=== PATIENT | male | born 1995 | race Caucasian/White ===

== ENCOUNTER 2023-01-01 09:05 | Observation (INO) | payer OTHER ==
[~2023-01-01] VITALS: Ht 193 cm; Wt 82.5 kg
[~2023-01-01 09:05] MED LIST: AMOCLA875 PO; DEXT15ER; LEVFLO500; SERT25
[2023-01-01 10:31] LABS: BASOPHILS ABSOLUTE AUTO 0.06 K/mm3 (0.00-0.23); BASOPHILS PERCENT AUTO 1 % (0-2); EOSINOPHILS PERCENT AUTO 0 % (0-6); Hematocrit 47.1 % (37.0-53.0); Hemoglobin 15.9 g/dL (13.5-17.5); IMMATURE GRAN ABSOLUTE AUTO 0.04 K/mm3 (0.00-0.10); IMMATURE GRAN PERCENT AUTO 1 % (0-1); LYMPHOCYTES ABSOLUTE AUTO 0.83 K/mm3 (0.84-5.20); LYMPHOCYTES PERCENT AUTO 10 % (21-46); MONOCYTES ABSOLUTE AUTO 0.42 K/mm3 (0.16-1.47); MONOCYTES PERCENT AUTO 5 % (4-13); Mean Corpuscular HGB 35.7 pg (26.0-34.0); Mean Corpuscular HGB Conc 33.8 g/dL (31.5-36.5); Mean Corpuscular Volume 106 fL (80-100); Mean Platelet Volume 12.1 fL (9.1-12.4); NEUTROPHILS ABSOLUTE AUTO 6.82 K/mm3 (1.96-9.15); NEUTROPHILS PERCENT AUTO 84 % (41-73); Platelet Count 148 K/mm3 (150-400); RDW Coefficient Variation 13.2 % (11.7-14.2); RDW Standard Deviation 52.3 fL (35.1-46.3); Red Blood Cell Count 4.46 M/mm3 (4.30-5.90); White Blood Cell Count 8.17 K/mm3 (4.00-11.30)
[2023-01-01 10:52] LABS: Albumin, Blood 4.4 g/dL (3.4-5.0); Albumin/Globulin Ratio 1.3 (0.8-1.8); Bilirubin, Direct 0.5 mg/dL (0.0-0.3); Bilirubin, Total 1.5 mg/dL (0.1-1.0); Bun/Creatinine Ratio 13.6 (12.0-20.0); Calcium, Blood 9.7 mg/dL (8.5-10.1); Creatinine, Blood 0.66 mg/dL (0.60-1.20); Globulin, Blood 3.4 g/dL (2.2-4.0); Potassium, Blood 3.9 mmol/L (3.5-5.5); Total Protein, Blood 7.8 g/dL (6.4-8.2)
[2023-01-01 12:00] LABS: Base Excess Venous -7.9 mmol/L; Bicarbonate Venous 18.7 mmol/L (24.0-30.0); PCO2 Venous 36.6 mmHg (38-42); pH Blood Venous 7.31 (7.34-7.37)
[2023-01-01 14:25] LABS: Calcium, Ionized (POC) 1.08 mmol/L (1.10-1.46); Chloride (POC) 96 mmol/L (98-108); Creatinine (POC) 0.5 mg/dL (0.8-1.3); Glucose (ISTAT POC) 231 mg/dL (70-99); Hemoglobin (POC) 13.9 g/dL (13.5-17.5); Sodium (POC) 133 mmol/L (135-148); Total CO2 (POC) 25 mmol/L (21-32)
[2023-01-01 14:51] VITALS: BP 139/91
--- NOTE | 2023-01-01 18:28 | NUR ---
LATE ENTRY PT ADMIT FROM ED. TREMORS ALERT AND ORIENTED X4. INDEPENDENT IN ROOM. FAMILY IS AT BEDSIDE. R/A
--- NOTE | 2023-01-01 18:53 | NUR ---
PT IS A CURRENT SMOKER. 1 PACK DAY FOR 10 YEARS[address] PATCH[address]. [place] CONSULTED. PLEASE SEE EMAR
[2023-01-01 20:28] VITALS: BP 125/75
[2023-01-02 03:47] VITALS: BP 124/89
[2023-01-02 05:24] LABS: BASOPHILS ABSOLUTE AUTO 0.02 K/mm3 (0.00-0.23); BASOPHILS PERCENT AUTO 1 % (0-2); EOSINOPHILS ABSOLUTE AUTO 0.05 K/mm3 (0.00-0.68); EOSINOPHILS PERCENT AUTO 1 % (0-6); Hematocrit 40.9 % (37.0-53.0); Hemoglobin 14.3 g/dL (13.5-17.5); IMMATURE GRAN ABSOLUTE AUTO 0.01 K/mm3 (0.00-0.10); IMMATURE GRAN PERCENT AUTO 0 % (0-1); LYMPHOCYTES ABSOLUTE AUTO 1.83 K/mm3 (0.84-5.20); LYMPHOCYTES PERCENT AUTO 43 % (21-46); MONOCYTES ABSOLUTE AUTO 0.36 K/mm3 (0.16-1.47); MONOCYTES PERCENT AUTO 9 % (4-13); Mean Corpuscular Volume 103 fL (80-100); Mean Platelet Volume 12.6 fL (9.1-12.4); NEUTROPHILS ABSOLUTE AUTO 1.97 K/mm3 (1.96-9.15); NEUTROPHILS PERCENT AUTO 46 % (41-73); Platelet Count 104 K/mm3 (150-400); RDW Coefficient Variation 12.6 % (11.7-14.2); RDW Standard Deviation 47.8 fL (35.1-46.3); Red Blood Cell Count 3.97 M/mm3 (4.30-5.90); White Blood Cell Count 4.24 K/mm3 (4.00-11.30)
[2023-01-02 05:49] LABS: Albumin, Blood 3.3 g/dL (3.4-5.0); Albumin/Globulin Ratio 1.2 (0.8-1.8); Bilirubin, Total 1.7 mg/dL (0.1-1.0); Bun/Creatinine Ratio 12.9 (12.0-20.0); Creatinine, Blood 0.7 mg/dL (0.60-1.20); Globulin, Blood 2.8 g/dL (2.2-4.0); Magnesium, Blood 2.1 mg/dL (1.6-2.4); Potassium, Blood 4.5 mmol/L (3.5-5.5); Total Protein, Blood 6.1 g/dL (6.4-8.2)
[2023-01-02 07:24] VITALS: BP 133/94
--- NOTE | 2023-01-02 07:46 | NUR ---
NO CHANGES IN [place] OVERNIGHT. 0400 CIWA WAS 4. JUST A SLIGHT TREMBLE AND PERSPIRATION. NO COMPLAINTS OF PAIN OR DISCOMFORT. UP IN HALLS THIS MORNING. VERY LOW LEVEL OF ANXIETY
[2023-01-02 15:10] VITALS: BP 133/82
--- NOTE | 2023-01-02 16:28 | NUR ---
SHIFT SUMMARY NO ACUTE CHANGES NOTED DURING SHIFT. PT ALERT AND ORIENTED, CALLS APPROPRIATELY. PT REMAINS ON RA, INDEPENDENT IN ROOM/BALES. PT PENDING PLACEMENT AT [facility]. CIWA REMAINS LOW, NO NOTICEABLE SIGNS OF WITHDRAW. WILL CONTINUE TO MONITOR. CALL LIGHT WITHIN REACH.
[2023-01-02] MEDS ORDERED: B-1100 M1 PO (17:09)
[2023-01-02] MEDS ORDERED: FOLI1 PO (17:09)
[2023-01-02] MEDS ORDERED: NICO21TP TOP (17:10)
--- NOTE | 2023-01-02 17:16 | NUR ---
DISCHARGE SUMMARY DISCHARGE, FOLLOWUP, AND MEDICATION INSTRUCTIONS GIVEN TO PT. PT VOICED COMPLETE UNDERSTANDING AND HAS NO QUESTIONS AT THIS TIME. IV REMOVED WITH CATHETER TIP INTACT. PT LEFT UNIT WITH MOTHER.
== END 2023-01-02 17:51 | disposition home or self-care (01) ==
LOC: ER 09:05 → MEDS 09:06 → ENPENDDIS 01-02 16:43 → MEDS 01-02 17:51
PROVIDERS: Student in an Organized Health Care Education/Training Program; ADMIT Internal Medicine
DX: F10.239 Alcohol dependence with withdrawal, unspecified (principal); R74.01 Elevation of levels of liver transaminase levels; E87.20 Acidosis, unspecified; E87.29 Other acidosis; E16.2 Hypoglycemia, unspecified; E80.6 Other disorders of bilirubin metabolism; F32.9 Major depressive disorder, single episode, unspecified; Z88.8 Allergy status to other drugs, medicaments and biological substances; Z72.0 Tobacco use
CPT/HCPCS: 36415; 76700; 80047; 80048; 80053; 80076; 82010; 82803; 83605; 83735; 85014; 85025; 93005; 93010; A9270; G0480; J2060; J2405; J7030; J7042

== ENCOUNTER 2023-08-21 15:20 | Emergency (ER) | payer OTHER ==
[~2023-08-21] VITALS: Ht 193 cm; Wt 72.6 kg
[~2023-08-21 15:20] MED LIST changes: +B-1100 M1 PO; +FOLI1 PO; +NICO21TP TOP
[2023-08-21 16:34] LABS: BASOPHILS ABSOLUTE AUTO 0.07 K/mm3 (0.00-0.23); BASOPHILS PERCENT AUTO 1 % (0-2); EOSINOPHILS PERCENT AUTO 0 % (0-6); Hemoglobin 22.2 g/dL (13.5-17.5); IMMATURE GRAN ABSOLUTE AUTO 0.04 K/mm3 (0.00-0.10); IMMATURE GRAN PERCENT AUTO 0 % (0-1); LYMPHOCYTES ABSOLUTE AUTO 1.15 K/mm3 (0.84-5.20); LYMPHOCYTES PERCENT AUTO 8 % (21-46); MONOCYTES ABSOLUTE AUTO 0.89 K/mm3 (0.16-1.47); MONOCYTES PERCENT AUTO 6 % (4-13); Mean Corpuscular HGB 34.7 pg (26.0-34.0); Mean Corpuscular HGB Conc 35.5 g/dL (31.5-36.5); Mean Corpuscular Volume 98 fL (80-100); Mean Platelet Volume 12.7 fL (9.1-12.4); NEUTROPHILS PERCENT AUTO 85 % (41-73); NRBC ABSOLUTE 0.03 K/mm3 (0.00-0.02); NRBC Auto 0.2 /100 WBC (0.0-0.2); Platelet Count 171 K/mm3 (150-400); RDW Coefficient Variation 15.5 % (11.7-14.2); RDW Standard Deviation 53.6 fL (35.1-46.3); Red Blood Cell Count 6.39 M/mm3 (4.30-5.90); White Blood Cell Count 14.25 K/mm3 (4.00-11.30)
[2023-08-21 16:46] LABS: Hematocrit 62.6 % (37.0-53.0)
[2023-08-21 16:53] LABS: Albumin, Blood 4.2 g/dL (3.4-5.0); Bilirubin, Total 1.9 mg/dL (0.1-1.0); Bun/Creatinine Ratio 8.6 (12.0-20.0); Creatinine, Blood 0.81 mg/dL (0.60-1.20); Potassium, Blood 3.6 mmol/L (3.5-5.5); Total Protein, Blood 8.2 g/dL (6.4-8.2)
[2023-08-21 18:27] LABS: Magnesium, Blood 1.7 mg/dL (1.6-2.4)
[2023-08-21 20:30] VITALS: BP 131/74
[2023-08-21 20:36] LABS: Source, Urine Clean Catch
[2023-08-21 20:42] LABS: Appearance, Urine Clear (Clear); Blood, Urine Neg (Neg); Color, Urine Amber (P-Yellow); Glucose Qualitative, Urine 2+ (Neg); Ketones, Urine 4+ (Neg); Leukocyte Esterase, Urine 1+ (Neg); Nitrite, Urine Neg (Neg); Protein, Urine 2+ (Neg); Specific Gravity, Urine 1.025 (1.003-1.022); Urobilinogen, Urine 2+ (Normal)
[2023-08-21] MEDS ORDERED: CHLO25 PO (20:44)
[2023-08-21 20:47] LABS: Bilirubin, Urine 1+ (Neg)
[2023-08-21 20:49] LABS: Bacteria Many /hpf; Squamous Epithelial Cells Rare /hpf (Few)
[2023-08-21 20:50] LABS: Mucus Light (0-Heavy)
[2023-08-21 20:53] LABS: U Amphetamine Screen Not Detected; U Barbituate Screen Not Detected; U Benzodiazapine Screen Not Detected; U Buprenorphine Screen Not Detected; U Cannabinoids Screen DETECTED; U Cocaine Screen Not Detected; U Methadone Screen Not Detected; U Methamphetamine Screen Not Detected; U Opiates Screen Not Detected; U Oxycodone Screen Not Detected; U Phencyclidine Screen Not Detected
== END 2023-08-21 20:57 | disposition home or self-care (01) ==
LOC: ER 15:20
PROVIDERS: Emergency Medicine; Physician Assistant
DX: F10.230 Alcohol dependence with withdrawal, uncomplicated (principal); Y90.0 Blood alcohol level of less than 20 mg/100 ml; E86.0 Dehydration; E16.2 Hypoglycemia, unspecified; F17.200 Nicotine dependence, unspecified, uncomplicated; F50.2 Bulimia nervosa; Z79.899 Other long term (current) drug therapy; Z88.8 Allergy status to other drugs, medicaments and biological substances
CPT/HCPCS: 80053; 81001; 83605; 83690; 83735; 84145; 85025; 87086; 93005; 93010; 96361; 96374; 96375; 99284-25; J1885; J2405; J3360; J7030

== ENCOUNTER 2024-11-26 09:08 | Observation (INO) | payer OTHER ==
[~2024-11-26] VITALS: Ht 193 cm; Wt 108.0 kg
[~2024-11-26 09:08] MED LIST changes: +CHLO25 PO
[2024-11-26 10:10] LABS: BASOPHILS ABSOLUTE AUTO 0.02 K/mm3 (0.00-0.23); BASOPHILS PERCENT AUTO 0 % (0-2); EOSINOPHILS ABSOLUTE AUTO 0.04 K/mm3 (0.00-0.68); EOSINOPHILS PERCENT AUTO 0 % (0-6); Hematocrit 52.1 % (37.0-53.0); Hemoglobin 18.5 g/dL (13.5-17.5); IMMATURE GRAN ABSOLUTE AUTO 0.04 K/mm3 (0.00-0.10); IMMATURE GRAN PERCENT AUTO 0 % (0-1); LYMPHOCYTES ABSOLUTE AUTO 1.45 K/mm3 (0.84-5.20); LYMPHOCYTES PERCENT AUTO 13 % (21-46); MONOCYTES ABSOLUTE AUTO 0.96 K/mm3 (0.16-1.47); MONOCYTES PERCENT AUTO 9 % (4-13); Mean Corpuscular HGB 35.4 pg (26.0-34.0); Mean Corpuscular HGB Conc 35.5 g/dL (31.5-36.5); Mean Corpuscular Volume 100 fL (80-100); Mean Platelet Volume 12.1 fL (9.1-12.4); NEUTROPHILS ABSOLUTE AUTO 8.83 K/mm3 (1.96-9.15); NEUTROPHILS PERCENT AUTO 78 % (41-73); Platelet Count 208 K/mm3 (150-400); RDW Coefficient Variation 12.8 % (11.7-14.2); RDW Standard Deviation 47.1 fL (35.1-46.3); Red Blood Cell Count 5.23 M/mm3 (4.30-5.90); White Blood Cell Count 11.34 K/mm3 (4.00-11.30)
[2024-11-26 10:40] LABS: Albumin, Blood 4.1 g/dL (3.4-5.0); Bilirubin, Total 0.9 mg/dL (0.1-1.0); Bun/Creatinine Ratio 7.2 (12.0-20.0); Calcium, Blood 9.3 mg/dL (8.5-10.1); Creatinine, Blood 0.7 mg/dL (0.60-1.20); Globulin, Blood 4.3 g/dL (2.2-4.0); Total Protein, Blood 8.4 g/dL (6.4-8.2)
[2024-11-26] MEDS ORDERED: Ketorolac Tromethamine 15mg Vial IV ONE (12:05)
[2024-11-26] MEDS ORDERED: NS 1,000 ML IV SCH (12:20)
[2024-11-26] MEDS ORDERED: CLIN150 PO (12:23)
[2024-11-26] MEDS ORDERED: Clindamycin 900mg in D5W 50ML 50 ML IV ONE (12:35)
[2024-11-26] MEDS ORDERED: GABA300 PO (12:47)
[2024-11-26] MEDS ORDERED: Ondansetron HCl 2 MG / ML 2ML Vial IV PRN (13:50)
[2024-11-26] MEDS ORDERED: Ketorolac Tromethamine 15mg Vial IV PRN (13:55)
[2024-11-26] MEDS ORDERED: Piperacillin/Tazobactam Sod 4.5 GM in NS 100 ML IV SCH (14:00)
[2024-11-26 14:10] VITALS: BP 133/77
[2024-11-26] MEDS ORDERED: Lactobacil 2-S.Thermo-Bifido 1 1 Cap PO SCH (21:00)
== END 2024-11-26 23:00 | disposition home or self-care (01) ==
LOC: ER 09:08 → ERHOLD 09:09
PROVIDERS: Physician Assistant; ADMIT Family Medicine
DX: K04.7 Periapical abscess without sinus (principal); F17.200 Nicotine dependence, unspecified, uncomplicated; Z53.29 Procedure and treatment not carried out because of patient's decision for other reasons; Z88.8 Allergy status to other drugs, medicaments and biological substances; Z79.899 Other long term (current) drug therapy
CPT/HCPCS: 70487; 80053; 85025; 96365-59; 96375; 99284-25; G0378; J1885; J7030; Q9967

== ENCOUNTER 2024-12-11 10:52 | Emergency (ER) | payer OTHER ==
[~2024-12-11] VITALS: Ht 193 cm; Wt 112.9 kg
[~2024-12-11 10:52] MED LIST changes: +CLIN150 PO; +GABA300 PO
[2024-12-11 11:05] VITALS: BP 146/100
[2024-12-11] MEDS ORDERED: Clindamycin HCl 150 MG Cap PO ONE (11:10)
[2024-12-11] MEDS ORDERED: Gabapentin 300 MG Cap PO ONE (11:10)
[2024-12-11] MEDS ORDERED: Neurontin 300300 MG PO (11:50)
[2024-12-11] MEDS ORDERED: Cleocin HCl300 MG PO (11:50)
== END 2024-12-11 12:11 | disposition home or self-care (01) ==
LOC: ER 10:52
DX: K04.7 Periapical abscess without sinus (principal); F10.239 Alcohol dependence with withdrawal, unspecified; Z88.8 Allergy status to other drugs, medicaments and biological substances
CPT/HCPCS: 99284; A9270

== ENCOUNTER 2025-03-02 12:14 | Emergency (ER) | payer OTHER ==
[~2025-03-02] VITALS: Ht 193 cm; Wt 113.8 kg
[~2025-03-02 12:14] MED LIST changes: +Cleocin HCl300 MG PO; +Neurontin 300300 MG PO
[2025-03-02 12:22] VITALS: BP 154/95
[2025-03-02] MEDS ORDERED: Clindamycin 900mg in D5W 50ML 50 ML IV ONE (12:30)
[2025-03-02] MEDS ORDERED: NS 1,000 ML IV SCH (12:30)
[2025-03-02] MEDS ORDERED: Ketorolac Tromethamine 15mg Vial IV ONE (12:30)
[2025-03-02 12:47] LABS: BASOPHILS ABSOLUTE AUTO 0.04 K/mm3 (0.00-0.23); BASOPHILS PERCENT AUTO 1 % (0-2); EOSINOPHILS ABSOLUTE AUTO 0.07 K/mm3 (0.00-0.68); EOSINOPHILS PERCENT AUTO 1 % (0-6); Hematocrit 46.5 % (37.0-53.0); Hemoglobin 16.3 g/dL (13.5-17.5); IMMATURE GRAN ABSOLUTE AUTO 0.03 K/mm3 (0.00-0.10); IMMATURE GRAN PERCENT AUTO 0 % (0-1); LYMPHOCYTES ABSOLUTE AUTO 1.41 K/mm3 (0.84-5.20); LYMPHOCYTES PERCENT AUTO 18 % (21-46); MONOCYTES ABSOLUTE AUTO 0.79 K/mm3 (0.16-1.47); MONOCYTES PERCENT AUTO 10 % (4-13); Mean Corpuscular HGB Conc 35.1 g/dL (31.5-36.5); Mean Corpuscular Volume 101 fL (80-100); NEUTROPHILS ABSOLUTE AUTO 5.42 K/mm3 (1.96-9.15); NEUTROPHILS PERCENT AUTO 70 % (41-73); NRBC ABSOLUTE 0.00 K/mm3 (0.00-0.02); NRBC Auto 0.0 /100 WBC (0.0-0.2); Platelet Count 130 K/mm3 (150-400); RDW Coefficient Variation 11.9 % (11.7-14.2); RDW Standard Deviation 44.8 fL (35.1-46.3)
[2025-03-02 13:04] LABS: Alanine Aminotransfer (ALT/SGP 22.0 U/L (12-78); Albumin, Blood 3.6 g/dL (3.4-5.0); Albumin/Globulin Ratio 1.0 (0.8-1.8); Anion Gap 7.0 mmol/L (3-11); Aspartate Aminotrans (AST/SGOT 14.0 U/L (12-37); Bilirubin, Total 1.4 mg/dL (0.1-1.0); Blood Urea Nitrogen 6.0 mg/dL (8-24); CO2, Blood 29.0 mmol/L (21-32); Calcium, Blood 8.4 mg/dL (8.5-10.1); Chloride, Blood 105.0 mmol/L (98-108); Creatinine, Blood 1.08 mg/dL (0.60-1.20); Globulin, Blood 3.5 g/dL (2.2-4.0); Glucose, Blood 91.0 mg/dL (70-99); Potassium, Blood 4.3 mmol/L (3.5-5.5); Sodium, Blood 137.0 mmol/L (136-145); Total Protein, Blood 7.1 g/dL (6.4-8.2)
[2025-03-02] MEDS ORDERED: CLIN300 PO (15:36)
== END 2025-03-02 15:50 | disposition home or self-care (01) ==
LOC: ER 12:14
PROVIDERS: Student in an Organized Health Care Education/Training Program
DX: K04.7 Periapical abscess without sinus (principal); Z88.8 Allergy status to other drugs, medicaments and biological substances; Z79.899 Other long term (current) drug therapy
CPT/HCPCS: 70487; 80053; 85025; J1885; J7030; Q9967

== ENCOUNTER 2025-06-20 10:23 | Emergency (ER) | payer OTHER ==
[~2025-06-20] VITALS: Ht 193 cm; Wt 108.9 kg
[~2025-06-20 10:23] MED LIST changes: +CLIN300 PO
[2025-06-20 11:21] LABS: BASOPHILS ABSOLUTE AUTO 0.03 K/mm3 (0.00-0.23); BASOPHILS PERCENT AUTO 0 % (0-2); EOSINOPHILS ABSOLUTE AUTO 0.01 K/mm3 (0.00-0.68); EOSINOPHILS PERCENT AUTO 0 % (0-6); Hematocrit 53.7 % (37.0-53.0); Hemoglobin 18.5 g/dL (13.5-17.5); IMMATURE GRAN ABSOLUTE AUTO 0.02 K/mm3 (0.00-0.10); IMMATURE GRAN PERCENT AUTO 0 % (0-1); LYMPHOCYTES ABSOLUTE AUTO 0.67 K/mm3 (0.84-5.20); LYMPHOCYTES PERCENT AUTO 9 % (21-46); MONOCYTES ABSOLUTE AUTO 0.40 K/mm3 (0.16-1.47); MONOCYTES PERCENT AUTO 5 % (4-13); Mean Corpuscular HGB Conc 34.5 g/dL (31.5-36.5); Mean Corpuscular Volume 103 fL (80-100); NEUTROPHILS ABSOLUTE AUTO 6.49 K/mm3 (1.96-9.15); NEUTROPHILS PERCENT AUTO 85 % (41-73); NRBC ABSOLUTE 0.00 K/mm3 (0.00-0.02); NRBC Auto 0.0 /100 WBC (0.0-0.2); Platelet Count 121 K/mm3 (150-400); RDW Coefficient Variation 12.9 % (11.7-14.2); RDW Standard Deviation 49.7 fL (35.1-46.3)
[2025-06-20 11:32] LABS: Alanine Aminotransfer (ALT/SGP 53.0 U/L (12-78); Albumin, Blood 4.3 g/dL (3.4-5.0); Albumin/Globulin Ratio 1.2 (0.8-1.8); Anion Gap 14.0 mmol/L (3-11); Aspartate Aminotrans (AST/SGOT 49.0 U/L (12-37); Bilirubin, Total 1.3 mg/dL (0.1-1.0); Blood Urea Nitrogen 9.0 mg/dL (8-24); CO2, Blood 23.0 mmol/L (21-32); Calcium, Blood 9.2 mg/dL (8.5-10.1); Chloride, Blood 101.0 mmol/L (98-108); Creatinine, Blood 0.72 mg/dL (0.60-1.20); Globulin, Blood 3.5 g/dL (2.2-4.0); Glucose, Blood 89.0 mg/dL (70-99); Potassium, Blood 4.1 mmol/L (3.5-5.5); Sodium, Blood 134.0 mmol/L (136-145); Total Protein, Blood 7.8 g/dL (6.4-8.2)
[2025-06-20] MEDS ORDERED: CHLO25 PO (13:34)
[2025-06-20 14:15] VITALS: BP 149/91
== END 2025-06-20 14:20 | disposition home or self-care (01) ==
LOC: ER 10:23
PROVIDERS: Student in an Organized Health Care Education/Training Program
DX: F10.139 Alcohol abuse with withdrawal, unspecified (principal); F17.200 Nicotine dependence, unspecified, uncomplicated; Z88.8 Allergy status to other drugs, medicaments and biological substances
CPT/HCPCS: 80053; 85025; 93005; 93010; 99285-25; A9270